=== PATIENT | male | born 1985 | race Two or more races ===

== ENCOUNTER 2019-06-28 04:13 | Emergency (ER) | payer BC ==
[~2019-06-28] VITALS: Ht 182.9 cm; Wt 115.7 kg
--- NOTE | 2019-06-28 04:35 | NUR ---
dr jacobsen is at bedside to see patient
--- NOTE | 2019-06-28 04:35 | NUR ---
received patient walked in complaining of pain in the right hip /inguinal area , 7/10, no swelling or redness on the affected areA
[2019-06-28] MEDS ORDERED: HYDROCODONE/APAP 5-325MG TABLET ONE (04:43)
[2019-06-28] MEDS ORDERED: HYDROCODONE/APAP 5-325MG TABLET PO ONE (04:45)
--- NOTE | 2019-06-28 04:45 | NUR ---
pain medication given orally , instructed not to drive and verbalizes understanding , family memeber ( mother ) , brought the patient to ER
[2019-06-28 04:50] VITALS: BP 101/68
== END 2019-06-28 05:04 | disposition home or self-care (01) ==
LOC: ER 04:16
DX: R10.31 Right lower quadrant pain (principal); K59.00 Constipation, unspecified; K82.4 Cholesterolosis of gallbladder
CPT/HCPCS: A4663